=== PATIENT | male | born 1970 | race Caucasian/White ===

== ENCOUNTER 2018-02-17 07:34 | Emergency (ER) | payer OTHER ==
[2018-02-17] MEDS ORDERED: Sodium Chloride 0.9% 2.5 ML Syringe FLUSH PRN (07:50)
[2018-02-17] MEDS ORDERED: Hyoscyamine 0.125 MG Tab.SL SL ONE (07:50)
[2018-02-17] MEDS ORDERED: Sodium Chloride 0.9% 1,000 ML IV ONE (07:50)
[2018-02-17] MEDS ORDERED: Sodium Chloride 0.9% 10 ML Syringe FLUSH PRN (07:50)
[2018-02-17] MEDS ORDERED: Ketorolac 30 MG/ML SDV IVPUSH ONE (07:54)
--- NOTE | 2018-02-17 07:54 | EDM.PDOC ---
ED HPI GENERAL MEDICAL PROBLEM - General Stated Complaint: ABDOMINAL PAIN Time Seen by Provider: 02/17/18 07:48 Source of Information: Reports: Patient History Limitations: Reports: No Limitations - History of Present Illness INITIAL COMMENTS - FREE TEXT/NARRATIVE: History of present illness: []Patient started having sharp cramping intermittent suprapubic and lower left quadrant abdominal pain that radiated to his left flank last night. It has progressively worsened and this morning patient was in severe pain called EMS. Patient does not have any fevers, chills, vomiting, diarrhea or nausea. She has not had any previous abdominal surgeries and denies a history of bowel disorders. He thinks he has IBS from what he has read. Review of systems: As per history of present illness and below otherwise all systems reviewed and negative. Past medical history: As per history of present illness and as reviewed below otherwise noncontributory. Surgical history: As per history of present illness and as reviewed below otherwise noncontributory. Social history: No reported history of drug or alcohol abuse. Family history: As per history of present illness and as reviewed below otherwise noncontributory. Physical exam: General: Well developed, well nourished in NAD HEENT: Atraumatic, normocephalic, pupils reactive, negative for conjunctival pallor or scleral icterus, mucous membranes moist, throat clear, neck supple, nontender, trachea midline. Lungs: Clear to auscultation, breath sounds equal bilaterally, chest nontender. Heart: S1S2, regular, negative for clicks, rubs, or JVD. Abdomen: Soft, nondistended, nontender. Negative for masses or hepatosplenomegaly. Negative for costovertebral tenderness. Pelvis: Stable nontender. Genitourinary: Deferred. Rectal: Deferred. Extremities: Atraumatic, negative for cords or calf pain. Neurovascular unremarkable. Neuro: Awake, alert, oriented. Cranial nerves II through XII unremarkable. Cerebellum unremarkable. Motor and sensory unremarkable throughout. Exam nonfocal. Diagnostics: []CBC normal chemistry normal urine shows trace blood. CT scan shows 4 mm stone in the distal left ureter with minimal hydronephrosis. Therapeutics: []Toradol, IV hydration, morphine, Flomax Impression: []Ureterolithiasis on the left Plan: []Increase fluids, Flomax Definitive disposition and diagnosis as appropriate pending reevaluation and review of above. Left flank radiating to LLQ Pain Score (Numeric/FACES): 4 - Related Data Allergies Allergy/AdvReac Type Severity Reaction Status Date / Time No Known Allergies Allergy Verified 02/17/18 07:50 Home Meds: Home Meds Aspirin [Adult Aspirin] 81 mg PO DAILY 02/17/18 [History] Flaxseed Oil [Flax Oil] 1,000 mg PO DAILY 02/17/18 [History] Glucosamine/D3/Boswellia Jenni [Osteo Bi-Flex Caplet] 2 each PO DAILY 02/17/18 [ History] Hydrochlorothiazide 12.5 mg PO DAILY 02/17/18 [History] Inulin [Fiber Gummies] 2 gm PO DAILY 02/17/18 [History] Krill/Om-3/DHA/EPA/Phospho/Ast [Krill Oil 1,000 mg Softgel] 1 cap PO DAILY 02/17 [History] Omeprazole 20 mg PO DAILY 02/17/18 [History] Tamsulosin HCl [Flomax] 0.4 mg PO DAILY #14 cap.er.24h 02/17/18 [Rx] amLODIPine Bes/Olmesartan Med [Amlodipine-Olmesartan 10-40 mg] 1 each PO DAILY 02/17/18 [History] traMADol HCl [Tramadol HCl] 50 mg PO Q6H PRN #16 tablet 02/17/18 [Rx] ED ROS GENERAL - Review of Systems Review Of Systems: See Below (See history of present illness) ED EXAM, GI/ABD - Physical Exam Exam: See Below (See history of present illness) Course - Vital Signs Last Recorded V/S: Last Vital Signs Temp 97.7 F 02/17/18 07:35 Pulse 84 02/17/18 07:35 Resp 16 02/17/18 07:35 BP 142/95 H 02/17/18 07:35 Pulse Ox 97 02/17/18 07:35 - Orders/Labs/Meds Orders: Active Orders 24 hr Category Date Time Status Abdomen Pelvis wo Cont [CT] Stat Exams 02/17/18 09:11 Taken UA W/MICROSCOPIC [URIN] Stat Lab 02/17/18 08:25 Ordered Sodium Chloride 0.9% [Saline Flush] Med 02/17/18 07:50 Active 10 ml FLUSH ASDIRECTED PRN Sodium Chloride 0.9% [Saline Flush] Med 02/17/18 07:50 Active 2.5 ml FLUSH ASDIRECTED PRN Saline Lock Insert [OM.PC] Stat Oth 02/17/18 07:49 Ordered Medication Orders Sodium Chloride (Saline Flush) 10 ml FLUSH ASDIRECTED PRN PRN Reason: Keep Vein Open Sodium Chloride (Saline Flush) 2.5 ml FLUSH ASDIRECTED PRN PRN Reason: Keep Vein Open Labs: Laboratory Tests 02/17/18 02/17/18 02/17/18 Range/Units 07:58 07:58 08:25 WBC 7.61 (4.0-11.0) K/uL RBC 5.02 (4.50-5.90) M/uL Hgb 15.2 (13.0-17.0) g/dL Hct 44.9 (38.0-50.0) % MCV 89.4 (80.0-98.0) fL MCH 30.3 (27.0-32.0) pg MCHC 33.9 (31.0-37.0) g/dL RDW Std Deviation 43.7 (28.0-62.0) fl RDW Coeff of Christopher 14 (11.0-15.0) % Plt Count 204 (150-400) K/uL MPV 11.10 (7.40-12.00) fL Neut % (Auto) 66.3 (48.0-80.0) % Lymph % (Auto) 19.3 (16.0-40.0) % Crisp % (Auto) 9.6 (0.0-15.0) % Eos % (Auto) 3.5 (0.0-7.0) % Baso % (Auto) 1.3 (0.0-1.5) % Neut # (Auto) 5.0 (1.4-5.7) K/uL Lymph # (Auto) 1.5 (0.6-2.4) K/uL Crisp # (Auto) 0.7 (0.0-0.8) K/uL Eos # (Auto) 0.3 (0.0-0.7) K/uL Baso # (Auto) 0.1 (0.0-0.1) K/uL Nucleated RBC % 0.0 /100WBC Nucleated RBCs # 0 K/uL Sodium 141 (136-148) mmol/L Potassium 3.4 L (3.5-5.1) mmol/L Chloride 105 (98-107) mmol/L Carbon Dioxide 26.7 (21.0-32.0) mmol/L BUN 17 (7.0-18.0) mg/dL Creatinine 1.0 (0.8-1.3) mg/dL Est Cr Clr Drug Dosing 94.13 mL/min Estimated GFR (MDRD) > 60.0 ml/min Glucose 122 H (74-106) mg/dL Calcium 8.3 L (8.5-10.1) mg/dL Total Bilirubin 0.2 (0.2-1.0) mg/dL AST 28 (15-37) IU/L ALT 41 (14-63) IU/L Alkaline Phosphatase 81 (46-116) U/L Total Protein 6.6 (6.4-8.2) g/dL Albumin 3.8 (3.4-5.0) g/dL Globulin 2.8 (2.0-3.5) g/dL Albumin/Globulin Ratio 1.4 (1.3-2.8) Lipase 179 (73-393) U/L Urine Color YELLOW Urine Appearance CLEAR Urine pH 6.5 (5.0-8.0) Ur Specific [place] 1.015 (1.001-1.035) Urine Protein NEGATIVE (NEGATIVE) mg/dL Urine Glucose (UA) NEGATIVE (NEGATIVE) mg/dL Urine Ketones NEGATIVE (NEGATIVE) mg/dL Urine Occult Blood TRACE-INTACT (NEGATIVE) Urine Nitrite NEGATIVE (NEGATIVE) Urine Bilirubin NEGATIVE (NEGATIVE) Urine Urobilinogen 0.2 (<2.0) EU/dL Ur Leukocyte Esterase NEGATIVE (NEGATIVE) Urine RBC 0-2 (0-2/HPF) Urine WBC RARE (0-5/HPF) Ur Epithelial Cells FEW (NONE-FEW) Amorphous Sediment MODERATE (NEGATIVE) Urine Bacteria FEW (NEGATIVE) Urine Mucus LIGHT (NONE-MOD) Meds: Medications Generic Name Dose Route Start Last Admin Trade Name Freq PRN Reason Stop Dose Admin Sodium Chloride 10 ml 02/17/18 07:50 Saline Flush FLUSH ASDIRECTED PRN Keep Vein Open Sodium Chloride 2.5 ml 02/17/18 07:50 Saline Flush FLUSH ASDIRECTED PRN Keep Vein Open Discontinued Medications Generic Name Dose Route Start Last Admin Trade Name Jaqueline PRN Reason Stop Dose Admin Hyoscyamine 0.125 mg 02/17/18 07:50 02/17/18 08:08 Hyomax-Sl SL 02/17/18 07:51 0.125 mg ONETIME ONE Administration Sodium Chloride 1,000 mls @ 999 mls/hr 02/17/18 07:50 02/17/18 08:08 Normal Saline IV 02/17/18 08:50 999 mls/hr .Bolus ONE Administration Ketorolac Tromethamine 30 mg 02/17/18 07:54 02/17/18 08:08 Toradol IVPUSH 02/17/18 07:55 30 mg ONETIME ONE Administration Morphine Sulfate 4 mg 02/17/18 10:14 02/17/18 10:30 Morphine IVPUSH 02/17/18 10:15 Not Given ONETIME ONE Morphine Sulfate 4 mg 02/17/18 10:29 02/17/18 10:30 Morphine IVPUSH 02/17/18 10:30 4 mg ONETIME ONE Administration Morphine Sulfate Confirm 02/17/18 10:28 02/17/18 10:34 Morphine Administered 02/17/18 10:29 Not Given Dose 4 mg .ROUTE .STK-MED ONE Tamsulosin HCl 0.4 mg 02/17/18 10:47 Flomax PO 02/17/18 10:48 ONETIME ONE Departure - Departure Time of Disposition: 10:49 Disposition: Home, Self-Care 01 Condition: Good Clinical Impression: Ureterolithiasis - Discharge Information Prescriptions: Tamsulosin HCl [Flomax] 0.4 mg PO DAILY #14 cap.er.24h traMADol HCl [Tramadol HCl] 50 mg PO Q6H PRN #16 tablet PRN Reason: Pain Referrals: PCP,None [Primary Care Provider] - Additional Instructions: The following information is given to patients seen in the emergency department who are being discharged to home. This information is to outline your options for follow-up care. We provide all patients seen in our emergency department with a follow-up referral. The need for follow-up, as well as the timing and circumstances, are variable depending upon the specifics of your emergency department visit. If you don't have a primary care physician on staff, we will provide you with a referral. We always advise you to contact your personal physician following an emergency department visit to inform them of the circumstance of the visit and for follow-up with them and/or the need for any referrals to a consulting specialist. The emergency department will also refer you to a specialist when appropriate. This referral assures that you have the opportunity for follow-up care with a specialist. All of these measure are taken in an effort to provide you with optimal care, which includes your follow-up. Under all circumstances we always encourage you to contact your private physician who remains a resource for coordinating your care. When calling for follow-up care, please make the office aware that this follow-up is from your recent emergency room visit. If for any reason you are refused follow-up, please contact the [facility] Emergency Department at and asked to speak to the emergency department charge nurse. Flomax as directed tramadol for severe pain and ibuprofen for mild pain and return if symptoms worsen or change otherwise follow-up with urology as needed [facility] Specialty Care - Urology [address] [place] [id number] - My Orders Last 24 Hours: My Active Orders 02/17/18 07:49 Saline Lock Insert [OM.PC] Stat 02/17/18 07:50 Sodium Chloride 0.9% [Saline Flush] 10 ml FLUSH ASDIRECTED PRN Sodium Chloride 0.9% [Saline Flush] 2.5 ml FLUSH ASDIRECTED PRN 02/17/18 08:25 UA W/MICROSCOPIC [URIN] Stat 02/17/18 09:11 Abdomen Pelvis wo Cont [CT] Stat - Assessment/Plan Last 24 Hours: My Active Orders 02/17/18 07:49 Saline Lock Insert [OM.PC] Stat 02/17/18 07:50 Sodium Chloride 0.9% [Saline Flush] 10 ml FLUSH ASDIRECTED PRN Sodium Chloride 0.9% [Saline Flush] 2.5 ml FLUSH ASDIRECTED PRN 02/17/18 08:25 UA W/MICROSCOPIC [URIN] Stat 02/17/18 09:11 Abdomen Pelvis wo Cont [CT] Stat
[2018-02-17 08:26] LABS: CHLORIDE,CL 105 mmol/L (98-107); SODIUM,NA 141 mmol/L (136-148)
[2018-02-17] MEDS ORDERED: Morphine 4 MG/ML Syringe IVPUSH ONE (10:14)
[2018-02-17] MEDS ORDERED: Morphine 2 MG/ML Syringe ONE (10:28)
[2018-02-17] MEDS ORDERED: Morphine 2 MG/ML Syringe IVPUSH ONE (10:29)
[2018-02-17] MEDS ORDERED: Tamsulosin 0.4 MG Cap.ER PO ONE (10:47)
--- NOTE | 2018-02-18 17:20 | CT ---
EXAM DATE: 02/17/18 PATIENT'S AGE: 48 Patient: ELPIDIO DUMONT Facility: [place], [place] Site . Site : [id number] Study: CT Abdomen/Pelvis [id number]/15/2018 9:37:39 AM Ordering Physician: Kirill Barber Final Report: HISTORY: Left-sided flank pain. COMPARISON: None. TECHNIQUE: Noncontrast axial images were obtained through the abdomen and pelvis. FINDINGS: Two 3 mm nodules in the right middle lobe on slice is 1 an 3. 2 mm pulmonary nodule left lower lobe. There is a 4 mm stone in the distal left ureter. Minimal left hydronephrosis. The liver, spleen, pancreas, are, adrenal glands are within normal without contrast. The bowel is normal in caliber. No lymphadenopathy or ascites. The bones are within normal. IMPRESSION: 1. Pulmonary nodules measuring less than [address] of the chest could be performed. See guidelines below. If patient is high risk, followup CT in 12 months is recommended. 2. 4 mm distal left ureteral stone with minimal hydronephrosis. [employer] G[employer] - SOLID NODULES: SINGLE LOW RISK - nodule less than 6 mm: No routine follow-up. - nodule 6-8 mm: CT at 6-12 months, then consider CT at 18-24 months. - nodule greater than 8 mm: Consider CT at 3 months, PET/CT or tissue sampling. SINGLE HIGH RISK - nodule less than 6 mm: Optional CT at 12 months. - nodule 6-8 mm: CT at 6-12 months, then CT at 18-24 months. - nodule greater than 8 mm: Consider CT at 3 months, PET/CT or tissue sampling. MULTIPLE LOW RISK - nodule less than 6 mm: No routine follow-up. - nodule 6-8 mm: CT at 3-6 months, then consider CT at 18-24 months. - nodule greater than 8 mm: CT at 3-6 months, then consider CT at 18-24 months. MULTIPLE HIGH RISK - nodule less than 6 mm: Optional CT at 12 months. - nodule 6-8 mm: CT at 3-6 months, then at 18-24 months. - nodule greater than 8 mm: CT at 3-6 months, then at 18-24 months. Please note that all CT scans at this facility use dose modulation, iterative reconstruction, and/or weight-based dosing when appropriate to reduce radiation dose to as low as reasonably achievable. Dictated by Lory Carrera MD @ Feb 17 2018 10:46AM (Electronic Signature) Report Signed by Proxy. [facility]
== END 2018-02-17 11:00 | disposition home or self-care (01) ==
LOC: MW.ED 07:34
DX: N13.2 Hydronephrosis with renal and ureteral calculous obstruction (principal); Z79.82 Long term (current) use of aspirin; Z79.899 Other long term (current) drug therapy; Z79.4 Long term (current) use of insulin
CPT/HCPCS: 36415; 74176; 80053; 81001; 83690; 85025; 96361; 96374; 96375; 99285; A9270; J1885; J2270; J7040; 99283

== ENCOUNTER 2022-04-04 16:04 | Emergency (ER) | payer OTHER ==
[2022-04-04] MEDS ORDERED: Ketorolac 30 MG/ML SDV IVPUSH ONE (17:23)
[2022-04-04 18:08] LABS: CARBON DIOXIDE,CO2 27.3 mmol/L (21.0-32.0); POTASSIUM,K 3.2 mmol/L (3.5-5.1)
== END 2022-04-04 18:54 | disposition home or self-care (01) ==
LOC: MW.ED 16:04
DX: M54.50 Low back pain, unspecified (principal); I10 Essential (primary) hypertension; Z79.899 Other long term (current) drug therapy
CPT/HCPCS: 36415; 74176; 80053; 81003; 85025; 96374; 99284; J1885